=== PATIENT | male | born 1970 | race Hispanic/Latino ===

== ENCOUNTER 2016-12-07 18:36 | Inpatient (IN) | payer OTHER ==
[2016-12-07] MEDS ORDERED: NACL 0.9% 1000 ML 1,000 ML IV ONE ×2 (19:30→21:42)
[2016-12-07] MEDS ORDERED: ZOFRAN IV ONE (19:32)
--- NOTE | 2016-12-07 19:32 | Emergency Department Report ---
HPI - General Chief Complaint: Abdominal Pain Time Seen by Provider: 12/07/16 19:24 - HPI HPI: 46-year-old male came to the ED with Prilosec quadrant pain, nausea, vomiting, and unable to keep anything down 2 days. Symptoms are drastically worsened today so he came to ED. ED Past Medical Hx - Past Medical History Previous Medical History?: No - Surgical History Past Surgical History?: No - Social History Smoking Status: Current Every Day Smoker Substance Use Type: None - Medications Home Medications: Home Medications Medication Instructions Recorded Confirmed Last Taken Type No Known Home Medications [No 12/07/16 12/07/16 Unknown History Reported Home Medications] ED Review of Systems ROS: Stated complaint: DEHYDRATION Other details as noted in HPI Comment: All other systems reviewed and negative Constitutional: chills, fever Gastrointestinal: abdominal pain, nausea, vomiting Physical Exam - Physical Exam Vital Signs: Vital Signs 12/07/16 19:05 Temperature 99.1 F Pulse Rate 125 H Respiratory 18 Rate Blood Pressure 106/69 O2 Sat by Pulse 94 Oximetry Physical Exam: Gen. alert and oriented 3 in mild distress Head atraumatic normocephalic Eyes PERR LA EOMI Chest regular rate and rhythm normal S1-S2 lungs clear bilaterally Abdomen soft nondistended, right lower quadrant tenderness. Back no point tenderness paravertebral tenderness Neuro no focal deficit. Psych normal mood. ED Course Vital Signs 12/07/16 19:05 Temperature 99.1 F Pulse Rate 125 H Respiratory 18 Rate Blood Pressure 106/69 O2 Sat by Pulse 94 Oximetry ED Medical Decision Making - Lab Data Result diagrams: 12/07/16 19:26 12/07/16 19:26 Critical care attestation.: If time is entered above; I have spent that time in minutes in the direct care of this critically ill patient, excluding procedure time. ED Disposition Clinical Impression: Acute appendicitis Disposition: DC-09 OP ADMIT IP TO THIS HOSP Is pt being admited?: Yes Does the pt Need Aspirin: No Condition: Stable Referrals: PRIMARY CARE, [Primary Care Provider] - 3-5 Days
[2016-12-07 19:59] LABS: Hematocrit 48.5 % (35.5-45.6); Hemoglobin 16.4 gm/dl (11.8-15.2); Mean Corpuscular HGB Conc 34 % (32-34); Mean Corpuscular Hemoglobin 31 pg (28-32); Mean Corpuscular Volume 91 fl (84-94); Platelet Count 159 K/mm3 (140-440); Red Blood Count 5.36 M/mm3 (3.65-5.03); Red Cell Distribution Width 13.1 % (13.2-15.2); White Blood Count 15.1 K/mm3 (4.5-11.0)
[2016-12-07 20:16] LABS: Albumin/Globulin Ratio 0.9 %; BUN/Creatinine Ratio 16.15; Bilirubin,Total 1.9 mg/dL (0.1-1.2); Calcium 8.1 mg/dL (8.4-10.2); Chloride 100.3 mmol/L (98-107); Potassium 3.3 mmol/L (3.6-5.0); Total Protein 6.4 g/dL (6.3-8.2)
[2016-12-07 20:47] LABS: Anisocytosis 1+; Basophils % (Manual) 0 % (0.0-1.8); Blastocytes % (Manual) 0 %; Eosinophils % (Manual) 0 % (0.0-4.3)
[2016-12-07 20:48] LABS: Diff Status Complete; Platelet Estimate Consistent w Auto; Poikilocytosis 1+
--- NOTE | 2016-12-07 22:24 | Cat Scan Report ---
FINAL REPORT EXAM: CT ABDOMEN PELVIS WO CON HISTORY: abdominal pain TECHNIQUE: CT abdomen and pelvis with oral and intravenous contrast PRIORS: None. FINDINGS: No acute abnormality identified in the lung bases. No focal abnormality identified within the liver parenchyma. The spleen demonstrates normal size and attenuation. No pancreatic abnormalities seen. The kidneys demonstrate symmetric contrast enhancement. Adrenal glands are unremarkable. No evidence of hydronephrosis. Abdominal aorta is normal in caliber. No pathologically enlarged lymph nodes are identified. No signs of free fluid or free air No evidence of small bowel dilatation. The appendix is identified. Is dilated measuring 1.4 centimeters and fluid-filled (axial slices 130-138) IMPRESSION: Findings are most consistent with acute appendicitis
[2016-12-07] MEDS ORDERED: ZOSYN/NS 4.5GM/100ML 4.5 GM/100 ML VIAL IV ONE (22:43)
[2016-12-08] MEDS ORDERED: MARCAINE-EPI/PF 0.5%-1:200,000 INFILTRATI ONE ×3 (00:08→03:30)
[2016-12-08] MEDS ORDERED: DILAUDID ONE (01:46)
[2016-12-08] MEDS ORDERED: DIPRIVAN 10 MG/ML IV ONE (01:46)
[2016-12-08] MEDS ORDERED: XYLOCAINE MPF 2% ONE (01:49)
[2016-12-08] MEDS ORDERED: QUELICIN ONE (01:49)
[2016-12-08] MEDS ORDERED: ZEMURON IV ONE (01:50)
--- NOTE | 2016-12-08 02:10 | Anesthesia Consultation ---
Anesthesia Consult and Med Hx Date of service: 12/08/16 - Airway Anesthetic Teeth Evaluation: Good ROM Head & Neck: Adequate Mental/Hyoid Distance: Adequate Mallampati Class: Class II Intubation Access Assessment: Probably Good - Pulmonary Exam CTA: Yes - Cardiac Exam Cardiac Exam: RRR - Pre-Operative Health Status ASA Pre-Surgery Classification: ASA2, Emergency Proposed Anesthetic Plan: General - Pulmonary Hx Smoking: Yes (1 PPD) Hx Asthma: No Hx Sleep Apnea: No - Cardiovascular System Hx Hypertension: No Hx Heart Attack/AMI: No - Central Nervous System Hx Seizures: No CVA: No - Endocrine Hx Renal Disease: No Hx Insulin Dependent Diabetes: No Hx Non-Insulin Dependent Diabetes: No Hx Hyperthyroidism: No - Other Systems Hx Obesity: No
--- NOTE | 2016-12-08 02:10 | Anesthesia Day of Surgery ---
Anesthesia Day of Surgery - Day of Surgery Patient Examined: Yes Patient H&P Reviewed: Yes Patient is NPO: Yes
--- NOTE | 2016-12-08 02:23 | History and Physical Report ---
Medications and Allergies Allergies Allergy/AdvReac Type Severity Reaction Status Date / Time No Known Allergies Allergy Unverified 01/11/14 09:25 Home Medications Medication Instructions Recorded Confirmed Last Taken Type No Known Home Medications [No 12/07/16 12/07/16 Unknown History Reported Home Medications] Exam Vital Signs Temp Pulse Resp BP Pulse Ox 99.1 F 125 H 18 106/69 94 12/07/16 19:05 12/07/16 19:05 12/07/16 19:05 12/07/16 19:05 12/07/16 19:05 Results - Labs 12/07/16 19:26 12/07/16 19:26 Abnormal lab results 12/07/16 12/07/16 Range/Units 19:26 19:26 WBC 15.1 H (4.5-11.0) K/mm3 RBC 5.36 H (3.65-5.03) M/mm3 Hgb 16.4 H (11.8-15.2) gm/dl Hct 48.5 H (35.5-45.6) % RDW 13.1 L (13.2-15.2) % Seg Neuts % (Manual) 87.0 H (40.0-70.0) % Lymphocytes % (Manual) 1.0 L (13.4-35.0) % Seg Neutrophils # Man 13.1 H (1.8-7.7) K/mm3 Lymphocytes # (Manual) 0.2 L (1.2-5.4) K/mm3 Potassium 3.3 L (3.6-5.0) mmol/L Carbon Dioxide 21 L (22-30) mmol/L BUN 21 H (9-20) mg/dL Glucose 101 H (75-100) mg/dL Calcium 8.1 L (8.4-10.2) mg/dL Total Bilirubin 1.90 H (0.1-1.2) mg/dL AST 42 H (5-40) units/L ALT 90 H (7-56) units/L Albumin 3.0 L (3.9-5) g/dL Diabetes panel 12/07/16 Range/Units 19:26 Sodium 138 (137-145) mmol/L Potassium 3.3 L (3.6-5.0) mmol/L Chloride 100.3 (98-107) mmol/L Carbon Dioxide 21 L (22-30) mmol/L BUN 21 H (9-20) mg/dL Creatinine 1.3 (0.8-1.5) mg/dL Glucose 101 H (75-100) mg/dL Calcium 8.1 L (8.4-10.2) mg/dL AST 42 H (5-40) units/L ALT 90 H (7-56) units/L Alkaline Phosphatase 112 (35-129) units/L Total Protein 6.4 (6.3-8.2) g/dL Albumin 3.0 L (3.9-5) g/dL Calcium panel 12/07/16 Range/Units 19:26 Calcium 8.1 L (8.4-10.2) mg/dL Albumin 3.0 L (3.9-5) g/dL Pituitary panel 12/07/16 Range/Units 19:26 Sodium 138 (137-145) mmol/L Potassium 3.3 L (3.6-5.0) mmol/L Chloride 100.3 (98-107) mmol/L Carbon Dioxide 21 L (22-30) mmol/L BUN 21 H (9-20) mg/dL Creatinine 1.3 (0.8-1.5) mg/dL Glucose 101 H (75-100) mg/dL Calcium 8.1 L (8.4-10.2) mg/dL Adrenal panel 12/07/16 Range/Units 19:26 Sodium 138 (137-145) mmol/L Potassium 3.3 L (3.6-5.0) mmol/L Chloride 100.3 (98-107) mmol/L Carbon Dioxide 21 L (22-30) mmol/L BUN 21 H (9-20) mg/dL Creatinine 1.3 (0.8-1.5) mg/dL Glucose 101 H (75-100) mg/dL Calcium 8.1 L (8.4-10.2) mg/dL Total Bilirubin 1.90 H (0.1-1.2) mg/dL AST 42 H (5-40) units/L ALT 90 H (7-56) units/L Alkaline Phosphatase 112 (35-129) units/L Total Protein 6.4 (6.3-8.2) g/dL Albumin 3.0 L (3.9-5) g/dL Assessment and Plan - General Chief Complaint: Abdominal Pain Time Seen by Provider: 12/07/16 19:24 - HPI HPI: 46-year-old male came to the ED with cc of RLQ abd pain, nausea, vomiting, and unable to keep anything down 2 days. Symptoms are drastically worsened today so he came to ED. PMH - neg PSH - neg NKA No meds FH - lung ca, DM, HD SH 1 ppd smoker x 30 yrs. neg etoh PE - abd flat, soft. RLQ tenderness with guarding CT consistent with acute appendicitis risks indications and complications reviewed with pt & family. forl lap appy possible open appy Laboratory Tests 12/07/16 12/07/16 19:26 19:26 WBC 15.1 H Hgb 16.4 H Hct 48.5 H Sodium 138 Potassium 3.3 L Chloride 100.3 Carbon Dioxide 21 L BUN 21 H Creatinine 1.3
[2016-12-08] MEDS ORDERED: NACL 0.9% IR ONE (03:30)
[2016-12-08] MEDS ORDERED: ROBINUL ONE (03:39)
[2016-12-08] MEDS ORDERED: ZOFRAN ONE (03:39)
[2016-12-08] MEDS ORDERED: NEOSTIGMINE ONE (03:39)
[2016-12-08] MEDS ORDERED: NACL 0.9% 1000 ML 1,000 ML ONE ×2 (03:46→04:14)
[2016-12-08] MEDS ORDERED: TORADOL ONE (03:49)
[2016-12-08] MEDS ORDERED: ZOFRAN IV PRN ×2 (03:54→04:22)
[2016-12-08] MEDS ORDERED: MORPHINE IV PRN (03:54)
--- NOTE | 2016-12-08 03:59 | Post Operative Note ---
Pre-op diagnosis: appendicitis Post-op diagnosis: same Findings: acute suppurative appendicitis. Lap appy withouth incident cults taken Anesthesia: GETA Surgeon: SALEEM MARTÍNEZ Estimated blood loss: minimal Pathology: list Specimen disposition: to lab Condition: stable Disposition: floor
--- NOTE | 2016-12-08 04:21 | Post Anesthesia Evaluation ---
- Post Anesthesia Evaluation Patient Participated: Yes Airway Patent: Yes Stable Respiratory Function: Yes Nausea/Vomiting: No Temp > 96.8F: Yes Pain Manageable: Yes Adequeate Hydration: Yes Anesthesia Complications: No Block Receding Appropriately: Not Applicable Patient on Ventilator: No
[2016-12-08] MEDS ORDERED: DILAUDID IV PRN (04:22)
[2016-12-08] MEDS: FLAGYL 500 MG/100 ML 500 MG/100 ML BAG IV SCH ×3 (05:54→22:30)
[2016-12-08] MEDS: D5W/0.45% NACL/KCL 30 MEQ 30 MEQ/1,000 ML BAG IV SCH ×2 (05:55→19:56)
[2016-12-08] MEDS: LEVAQUIN 500MG/100ML 500 MG/100 ML BAG IV SCH (11:15)
[2016-12-08] MEDS: MORPHINE IV PRN (15:12)
--- NOTE | 2016-12-09 00:32 | Admit Criteria Form ---
Admission Criteria Documentation: ABDOMINAL PAIN Clinical Indications for Admission to Inpatient Care (Place 'X' for any and all applicable criteria): Admission is indicated for ANY ONE of the following(1)(2)(3)(4)(5): [ ]I. Inpatient admission required rather than observation care (Also use Abdominal Pain: Observation Care, as appropriate) because of ANY ONE of the following: [ ]a) Severe pain requiring acute inpatient management [ ]b) Identification of etiology/finding that requires inpatient care (eg, aortic dissection, free air) [ ]c) Absent bowel sounds with complete ileus(6) [ ]d) Suspected toxic megacolon [ ]e) Severe electrolyte abnormalities requiring inpatient care [ ]f) High fever or infection requiring inpatient admission as indicated by ANY ONE of following(7)(8): [ ] i) Appropriate outpatient or observational care antimicrobial treatment unavailable, not effective, or not feasible [ ] ii) Documented bacteremia [ ] iii) Temperature > 104.9 degrees F (oral) [ ] iv) T >103.1 F (oral) or < 96.8 F(rectal) that does not respond to all emergency treatment measures [ ]g) Signs of intestinal obstruction [B] [ ]h) Hemodynamic instability [ ]i) IV fluid to replace significant ongoing losses (greater than 3 L/m2 per day) (12)(13) [ ]j) Percutaneous or open drainage (eg, abscess, biliary tract ) procedures [ ]k) Parenteral nutrition regimen that must be implemented on inpatient basis [ ]l) Other condition,treatment or monitoring requiring inpatient admission. [ ]II. Peritoneal signs present [X ]III. Surgery needed that cannot be performed on an ambulatory basis. [ ]IV. Evaluation requires patient to not eat or drink for extended period ( eg, more than 24 hours). [ ]V. Contraindications and/or Inappropriate clinical situations for Observational Care in patients with abdominal pain, when ANY ONE of the following is required: [ ]a) Thorough evaluation is required to prevent catastrophic events due to delays in diagnosing (e.g.Mesenteric ischemia) 1,3 [ ]b) Patient with severe pathology or with chronic symptoms unlikely to improve in the ED stay (3) [ ]. General contraindications and/or Inappropriate clinical situations for Observational Care in patients with abdominal pain, when ANY ONE of the following is required: [ ]a) Prediction of prolongation of LOS based on ANY ONE of the following may be considered as a contraindication for observational care 2, 3, 4, 5, 6, 7, 8, 9, 10, 11 [ ]i) Age > 65 yrs. [ ]ii) Patient arriving by ambulance [ ]iii) Patient with high acuity [ ]iv) Patient requiring vital sign monitoring [ ]v) Patient on IV medication [ ]b) Systolic blood pressures 180mmHg 3,12 [ ]c) Patient with altered mental status including delirium and other alteration of consciousness, (3) [ ]d) Patient whose discharge disposition will be to a long-term home or rehabilitation home should not be managed in Emergency Department Observation Unit. CMS rule requires 3 days hospital stay before such placement.3,13 [ ]e) Patient with failure to thrive due to broad array of etiologies 3,16,17 [ ]f) Inability to ambulate 3,14 Extended stay beyond goal length of stay may be needed for(2)(3): [ ]a) Persistent abdominal pain with suspected intra-abdominal process [ ]b) Diagnosed condition requiring continued stay (e.g., pancreatitis, complicated diverticulitis) [ ]c) Surgery (e.g., colectomy) The original [facility] content created by [employer] has been revised. The portions of the content which have been revised are identified through the use of italic text or in bold, and [facility] has neither reviewed nor approved the modified material.All other unmodified content is copyright [facility]. Please see references footnoted in the original [facility] edition 2016 Admission Criteria Met: Yes
[2016-12-09] MEDS: MORPHINE IV PRN ×4 (04:42→21:18)
[2016-12-09 04:45] LABS: Basophils % (Auto) 0.1 % (0.0-1.8); Eosinophils % (Auto) 0.5 % (0.0-4.3); Hematocrit 40.3 % (35.5-45.6); Hemoglobin 14.1 gm/dl (11.8-15.2); Mean Corpuscular HGB Conc 35 % (32-34); Mean Corpuscular Hemoglobin 31 pg (28-32); Mean Corpuscular Volume 89 fl (84-94); Platelet Count 160 K/mm3 (140-440); Red Blood Count 4.54 M/mm3 (3.65-5.03); Red Cell Distribution Width 12.5 % (13.2-15.2); White Blood Count 13.7 K/mm3 (4.5-11.0)
[2016-12-09 05:00] LABS: Anion Gap 16 mmol/L; Blood Urea Nitrogen 12 mg/dL (9-20); Calcium 8.1 mg/dL (8.4-10.2); Carbon Dioxide 25 mmol/L (22-30); Glucose 122 mg/dL (75-100); Potassium 3.8 mmol/L (3.6-5.0); Sodium 140 mmol/L (137-145)
[2016-12-09] MEDS: D5W/0.45% NACL/KCL 30 MEQ 30 MEQ/1,000 ML BAG IV SCH ×2 (05:01→16:02)
[2016-12-09] MEDS: FLAGYL 500 MG/100 ML 500 MG/100 ML BAG IV SCH ×3 (06:12→21:19)
[2016-12-09] MEDS: LEVAQUIN 500MG/100ML 500 MG/100 ML BAG IV SCH (09:52)
[2016-12-09] MEDS ORDERED: NORCO 5/325 PO PRN (14:42)
--- NOTE | 2016-12-09 14:42 | Progress Note ---
Assessment and Plan POD #1 Pt feeling well. no specific compl. neg flatus Abd soft. dressings dry. hypoactive BS wbc 13.7 surgically stable ice chips ambulation continue IV antibiotics f/u wbc in am Selected Entries 12/09/16 11:54 Temperature 98.3 F Pulse Rate [ 82 Apical] Respiratory 20 Rate Blood Pressure 128/81 [Left Arm] Laboratory Tests 12/07/16 12/09/16 19:26 04:33 WBC 15.1 H 13.7 H Hgb 16.4 H 14.1 Hct 48.5 H 40.3 D Objective Vital Signs - 12hr 12/09/16 12/09/16 12/09/16 03:51 04:03 04:42 Temperature 98.1 F 98.7 F Pulse Rate [ 0 L 0 L Apical] Pulse Rate [ 58 L 80 Right] Respiratory 20 14 16 Rate Blood Pressure 125/70 143/88 [Left Arm] O2 Sat by Pulse 99 96 Oximetry 12/09/16 12/09/16 12/09/16 07:00 10:00 11:54 Temperature 98.9 F 98.3 F Pulse Rate [ 80 82 Apical] Pulse Rate [ 80 82 Right] Respiratory 16 20 Rate Blood Pressure 148/94 128/81 [Left Arm] O2 Sat by Pulse 97 95 Oximetry - Labs 12/09/16 04:33 12/09/16 04:33 Diabetes panel 12/09/16 Range/Units 04:33 Sodium 140 (137-145) mmol/L Potassium 3.8 (3.6-5.0) mmol/L Chloride 103.0 (98-107) mmol/L Carbon Dioxide 25 (22-30) mmol/L BUN 12 (9-20) mg/dL Creatinine 0.6 L D (0.8-1.5) mg/dL Glucose 122 H (75-100) mg/dL Calcium 8.1 L (8.4-10.2) mg/dL Calcium panel 12/09/16 Range/Units 04:33 Calcium 8.1 L (8.4-10.2) mg/dL Pituitary panel 12/09/16 Range/Units 04:33 Sodium 140 (137-145) mmol/L Potassium 3.8 (3.6-5.0) mmol/L Chloride 103.0 (98-107) mmol/L Carbon Dioxide 25 (22-30) mmol/L BUN 12 (9-20) mg/dL Creatinine 0.6 L D (0.8-1.5) mg/dL Glucose 122 H (75-100) mg/dL Calcium 8.1 L (8.4-10.2) mg/dL Adrenal panel 12/09/16 Range/Units 04:33 Sodium 140 (137-145) mmol/L Potassium 3.8 (3.6-5.0) mmol/L Chloride 103.0 (98-107) mmol/L Carbon Dioxide 25 (22-30) mmol/L BUN 12 (9-20) mg/dL Creatinine 0.6 L D (0.8-1.5) mg/dL Glucose 122 H (75-100) mg/dL Calcium 8.1 L (8.4-10.2) mg/dL
[2016-12-10] MEDS: D5W/0.45% NACL/KCL 30 MEQ 30 MEQ/1,000 ML BAG IV SCH ×2 (01:21→12:18)
[2016-12-10] MEDS: FLAGYL 500 MG/100 ML 500 MG/100 ML BAG IV SCH ×3 (06:00→21:52)
[2016-12-10 06:45] LABS: Basophils % (Auto) 0.4 % (0.0-1.8); Eosinophils % (Auto) 2.5 % (0.0-4.3); Hematocrit 43.6 % (35.5-45.6); Hemoglobin 15.2 gm/dl (11.8-15.2); Mean Corpuscular HGB Conc 35 % (32-34); Mean Corpuscular Hemoglobin 31 pg (28-32); Mean Corpuscular Volume 88 fl (84-94); Platelet Count 179 K/mm3 (140-440); Red Blood Count 4.94 M/mm3 (3.65-5.03); Red Cell Distribution Width 12.7 % (13.2-15.2); White Blood Count 8.5 K/mm3 (4.5-11.0)
[2016-12-10] MEDS: LEVAQUIN 500MG/100ML 500 MG/100 ML BAG IV SCH (09:58)
[2016-12-10] MEDS ORDERED: NORCO 5/325 PO PRN (13:54)
--- NOTE | 2016-12-10 13:54 | Progress Note ---
Assessment and Plan POD #2 Pt feeling better. + flatus Abd soft. dressings dry. + BS wbc down 8.5 stable attempt cl liq diet Selected Entries 12/10/16 07:51 Temperature 98.3 F Pulse Rate [ 68 Apical] Respiratory 18 Rate Blood Pressure 117/77 [Left Arm] Laboratory Tests 12/10/16 06:09 WBC 8.5 Hgb 15.2 Hct 43.6 Objective Vital Signs - 12hr 12/10/16 07:51 Temperature 98.3 F Pulse Rate [ 68 Apical] Pulse Rate [ 68 Right] Respiratory 18 Rate Blood Pressure 117/77 [Left Arm] O2 Sat by Pulse 95 Oximetry - Labs 12/10/16 06:09 12/09/16 04:33
[2016-12-11] MEDS: D5W/0.45% NACL/KCL 30 MEQ 30 MEQ/1,000 ML BAG IV SCH (00:05)
[2016-12-11] MEDS: FLAGYL 500 MG/100 ML 500 MG/100 ML BAG IV SCH (06:15)
--- NOTE | 2016-12-11 07:31 | Discharge Summary ---
Providers - Providers Date of Admission: 12/08/16 02:26 Attending physician: SALEEM MARTÍNEZ Primary care physician: WELLNESS COORDINATOR Hospitalization Condition: Good Disposition: DC-01 TO HOME OR SELFCARE Core Measure Documentation - Palliative Care Palliative Care/ Comfort Measures: Not Applicable - Core Measures Any of the following diagnoses?: none Exam - Constitutional Vitals: Temp Pulse Resp BP Pulse Ox 98.9 F 72 18 129/90 96 12/11/16 05:55 12/11/16 05:55 12/11/16 05:55 12/11/16 05:55 12/11/16 05:55 Plan Activity: other (reg diet this am. september d/c today if diet aravind. keep dressings dry x 5 days. no lifting over 5 lbs. abd binder x 2 wks. rto this sat) Weight Bearing Status: Partial Weight Bearing Diet: regular Wound: keep clean and dry Follow up with: SALEEM MARTÍNEZ MD [Staff Physician] - 12/14/16
--- NOTE | 2016-12-11 07:34 | Progress Note ---
Assessment and Plan POD # 3 Pt feeling well without compl. +BM aravind cl liq Abd soft non tender +BS stable reg diet d/c today if diet aravind rto this Fri Objective Vital Signs - 12hr 12/10/16 12/10/16 12/11/16 20:30 22:00 05:55 Temperature 98.6 F 98.9 F Pulse Rate [ 77 77 72 Apical] Pulse Rate [ 77 77 72 Right] Respiratory 17 18 Rate Blood Pressure 128/92 129/90 [Left Arm] O2 Sat by Pulse 100 96 Oximetry - Labs 12/10/16 06:09 12/09/16 04:33
[2016-12-11 07:56] VITALS: BP 119/69
[2016-12-11] MEDS: LEVAQUIN 500MG/100ML 500 MG/100 ML BAG IV SCH (11:00)
== END 2016-12-11 13:00 | disposition home or self-care (01) | DRG 343 ==
LOC: ED 18:36 → 2B-SURG 12-08 02:26
PROVIDERS: ADMIT Surgery; ATTEND Surgery
PROC: 0DTJ4ZZ Resection of Appendix, Percutaneous Endoscopic Approach (ICD-10-PCS; principal; 2016-12-08)
DX: K35.80 Unspecified acute appendicitis (principal); F17.210 Nicotine dependence, cigarettes, uncomplicated; Z80.1 Family history of malignant neoplasm of trachea, bronchus and lung; Z83.3 Family history of diabetes mellitus; Z83.2 Family history of diseases of the blood and blood-forming organs and certain disorders involving the immune mechanism
CPT/HCPCS: 36415; 74176; 80048; 80053; 84484; 85007; 85025; 87075; 87116; 88304; 93005; 93010; 96365; 96375; J0330; J1170; J1885; J1956; J2270; J2405; J2543; J2704; J2710; J7030